=== PATIENT | female | born 1935 | race Caucasian/White ===

== ENCOUNTER 2019-07-05 10:05 | Outpatient (CLI) | payer MEDICARE, SELFPAY ==
--- NOTE | ~2019-07-05 | XR_ITS ---
EXAMINATION: XR chest 2V DATE: 07/05/2019 11:37 INDICATION: Diabetes. Preop. TECHNIQUE: Frontal and lateral views of the chest were obtained. COMPARISON: None. FINDINGS: There is mild atelectasis in left lower lung zone. No pleural effusion or pneumothorax. The heart size is normal. IMPRESSION: 1. Mild atelectasis in left lower lung zone. Reviewed, dictated and finalized at location A. ER HAND
--- NOTE | 2019-07-05 10:55 | ECG_ITS ---
Measurements Intervals [place] Rate: 90 P: 31 MN: 267 QRS: -47 QRSD: 149 T: 70 QT: 379 QTc: 466 Interpretive Statements SINUS RHYTHM WITH FIRST DEGREE AV BLOCK VENTRICULAR PREMATURE COMPLEX POSSIBLE LEFT ATRIAL ENLARGEMENT LEFT AXIS DEVIATION LEFT BUNDLE BRANCH BLOCK ABNORMAL ECG Electronically Signed On 07-05-2019 11:50:56 CREDIT ADMINISTRATION SPECIALIST by Santosh Arias D.O.
[2019-07-05 11:34] LABS: Basophils Absolute Auto 0.1 K/mm3 (0.0-0.1); Basophils Percent Auto 0.9 % (0.2-1.2); Eosinophils Absolute Auto 0.1 K/mm3 (0-0.3); Eosinophils Percent Auto 1.7 % (0-4.4); Hematocrit 39.9 % (37.0-47.0); Hemoglobin 13.5 g/dL (12.0-15.0); Immature Granulocyte Absolute 0.01 K/mm3 (0.00-0.031); Immature Granulocyte Percent A 0.2 % (0-0.5); Lymphocytes Absolute Auto 1.54 K/mm3 (0.9-3.2); Lymphocytes Percent Auto 28.8 % (18.3-44.2); Mean Corpuscular HGB Conc 33.8 g/dl (32-36); Mean Corpuscular Hemoglobin 34.6 pg (26-34); Mean Corpuscular Volume 102.3 fl (80-100); Mean Platelet Volume 9.3 fl (7.4-10.4); Monocytes Absolute Auto 0.5 K/mm3 (0.1-0.6); Monocytes Percent Auto 9.6 % (2.6-8.5); Neutrophils Absolute Auto 3.1 K/mm3 (1.3-6.7); Neutrophils Percent Auto 58.8 % (45.5-73.1); Platelet Count Result 215 k/mm3 (150-375); Red Cell Distribution Width 13.2 % (11.5-14.5); White Blood Count 5.3 K/mm3 (4.5-10.0)
[2019-07-05 11:39] LABS: Albumin Level 4.9 g/dL (3.5-5.1); Blood Urea Nitrogen 13 mg/dL (7-17); Calcium 10.4 mg/dL (8.4-10.2); Carbon Dioxide 27 mmol/L (22-30); Chloride 98 mmol/L (98-107); Estimated Glomerular Filt Rate > 60; Glucose 98 mg/dL (65-105); Potassium 3.7 mmol/L (3.4-5.0); Sodium 137 mmol/L (137-145)
[2019-07-05 11:44] LABS: Urine Cotinine NEGATIVE
[2019-07-05 18:17] LABS: Hemoglobin A1C 5.7 % (<5.7)
== END 2019-07-05 10:06 | disposition home or self-care (01) ==
PROVIDERS: PCP Family Medicine; Visit Provider Orthopaedic Surgery
DX: M16.11 Unilateral primary osteoarthritis, right hip (principal); E11.9 Type 2 diabetes mellitus without complications; I10 Essential (primary) hypertension; R91.8 Other nonspecific abnormal finding of lung field; I44.7 Left bundle-branch block, unspecified; I44.0 Atrioventricular block, first degree
CPT/HCPCS: 36415; 71046; 80048; 80307; 82040; 83036; 85025; 87070; 93005

== ENCOUNTER 2019-07-18 10:23 | Outpatient (CLI) | payer MEDICARE, SELFPAY ==
[2019-07-18 12:04] LABS: Vitamin D 25 Hydroxy < 12.8 ng/mL
== END 2019-07-18 10:24 | disposition home or self-care (01) ==
PROVIDERS: PCP Family Medicine; Visit Provider Orthopaedic Surgery
DX: E55.9 Vitamin D deficiency, unspecified (principal)
CPT/HCPCS: 36415; 82306

== ENCOUNTER 2019-07-19 07:41 | Outpatient (CLI) | payer MEDICARE, SELFPAY ==
--- NOTE | ~2019-07-19 | NM_ITS ---
EXAMINATION: NM micaela stress w perfusion DATE: 07/19/2019 15:09 INDICATION: Dyspnea TECHNIQUE: Rest images were obtained following intravenous administration of 9.8 mCi Tc99m tetrofosmi n (Myoview). The patient was infused intravenously with Lexiscan (Regadenoson). Then, 23.8 mCi Tc99m tetrofosmin (Myoview) was administered intravenously, and stress images were obtained. Data was recon structed into short axis and horizontal and vertical long axis SPECT images. Gated SPECT images were also obtained. COMPARISON: None. FINDINGS: Large mild to moderate severity perfusion defect involving the apical, apical septal, mid a nteroseptal, mid and basilar inferoseptal, apical to basilar inferior wall and mid posterolateral wal l which is largely nonreversible consistent with infarct. Mild reversible ischemia at the basilar inf eroseptal and inferior segments. There is also mild reversible ischemia at the anterior apical and la teral apical segments. There is normal left ventricular chamber size with mild decreased wall thicke jamil and wall motion along the inferior and inferoseptal [place]. Left ventricular ejection fraction r emains normal measuring 57%. IMPRESSION: 1. Small regions of mild reversible ischemia at the margins of a large mild to moderate severity infa rct involving the majority of the right coronary artery is distribution as well as portion of the lef t anterior descending and to lesser greater circumflex coronary artery vascular distributions. 2. Left ventricular ejection fraction measuring 57%. Reviewed, dictated and finalized at location A. LT WORKER IMPRESSION: 1. Small regions of mild reversible ischemia at the margins of a large mild to moderate severity infarct involving the majority of the right coronary artery i s distribution as well as portion of the left anterior descending and to lesser greater circumflex coronary artery vascular distributions. 2. Left ventricular ejection fraction measuring 57%.
--- NOTE | 2019-07-19 07:50 | EST_ITS ---
Patient Info Name: Misty Telles Age: 83 years : 1935 Gender: Female Ht: 64 in Wt: 125 lbs BSA: 1.60 m2 Exam Date: 07/19/2019 11:52 AM Exam Location: [facility] Stress Patient Status: Outpatient Admit Date: 07/19/2019 Staff Ordering Physician: Santosh Arias DO Attending Provider: Santosh Arias DO Exercise Technologist: Archie Guevara RDCS, RT Exercise Physician: Santosh Arias DO Exam Type: CA stress micaela w NM Study Info A regadenoson stress test was performed. Summary 1. 1. Inconclusive lexiscan stress test for ischemic ST changes by ECG criteria due to baseline LBBB. 2. 2. Baseline hypertension. 3. 3. Nuclear scan to follow and will be reported separately. Please correlate with it. 4. 4. Patient informed of the above results. Protocol: Lexiscan Stress ECG Details Stage: REST Duration (min): 2 min : 26 sec HR (bpm): 82 SBP (mmHg): 168 DBP (mmHg): 96 Stage: STAGE 1 Duration (min): 0 min : 59 sec HR (bpm): 91 SBP (mmHg): 168 DBP (mmHg): 96 Stage: RECOVERY Duration (min): 1 min : 0 sec HR (bpm): 98 SBP (mmHg): 168 DBP (mmHg): 96 Stage: RECOVERY Duration (min): 2 min : 0 sec HR (bpm): 99 SBP (mmHg): 159 DBP (mmHg): 80 Stage: RECOVERY Duration (min): 3 min : 0 sec HR (bpm): 97 SBP (mmHg): 161 DBP (mmHg): 85 Stage: RECOVERY Duration (min): 4 min : 0 sec HR (bpm): 96 SBP (mmHg): 161 DBP (mmHg): 85 Stage: RECOVERY Duration (min): 5 min : 0 sec HR (bpm): 94 SBP (mmHg): 153 DBP (mmHg): 83 Stage: RECOVERY Duration (min): 5 min : 3 sec HR (bpm): 94 SBP (mmHg): 153 DBP (mmHg): 83 Rest HR: 82 bpm Peak HR: 100 bpm Rest Sys BP: 168 mmHg Peak Sys BP: 161 mmHg Max Pred HR: 138 bpm % Max Pred HR: 72 % Target HR: 117 bpm Max RPP: 16,100 bpm*mmHg Termination Reason: Completed protocol Cardiac Symptoms: Shortness of breath Total Time: 1 min : 0 sec Rest Salazar BP: 96 mmHg Peak Salazar BP: 85 mmHg Total Dose: 0.4 mg Resting ECG Sinus rhythm, first degree AV block, LBBB. Stress ECG No ST changes. Arrhythmias None. Report Signatures
--- NOTE | 2019-07-19 08:26 | ECHO_ITS ---
Patient Info Name: Misty Tellse Age: 83 years : 1935 Gender: Female Ht: 64 in Wt: 125 lbs BSA: 1.60 m2 HR: 77 bpm BP: 162 / 95 mmHg Technical Quality: Good Exam Date: 07/19/2019 8:48 AM Exam Location: [facility] Pulmonary Patient Status: Outpatient Admit Date: 07/19/2019 Staff Ordering Physician: Santosh Arias DO Glue Line Operator: Philly Hughes RDCS Attending Provider: Santosh Arias DO Referring Physician: Hugo PIZANO; Exam Type: CA echo doppler color flow Study Info Indications - sanchez htn pre op Complete two-dimensional, color flow and Doppler transthoracic echocardiogram is performed. Summary 1. Left ventricular chamber dimension is normal. 2. Left ventricular systolic function is mildly reduced, estimated at 45-50%. 3. Left ventricular septal wall motion is abnormal with septal motion related to bundle branch block. 4. The left ventricular diastolic function is abnormal. 5. E/e' 32 is significantly elevated. 6. Left atrial chamber dimension is mildly enlarged. 7. The mitral valve has mildly calcified annulus. 8. There is mild tricuspid valve regurgitation. 9. No pulmonary hypertension, estimated pulmonary arterial systolic pressure is 31 mmHg. Left Ventricle E/e' 32 is significantly elevated. Left ventricular chamber dimension is normal. Left ventricular systolic function is mildly reduced, estimated at 45-50%. Left ventricular septal wall motion is abnormal with septal motion related to bundle branch block. The left ventricular diastolic function is abnormal. Right Ventricle Right ventricular chamber dimension is normal. Right ventricular systolic function is normal. Left Atria Left atrial chamber dimension is mildly enlarged. Right Atria Right atrial chamber dimension is normal. Aortic Valve The aortic valve is trileaflet. There is no aortic valve stenosis. There is no aortic valve regurgitation. Pulmonic Valve There is no pulmonic regurgitation. Mitral Valve The mitral valve has mildly calcified annulus. There is no mitral valve stenosis. There is no mitral valve regurgitation. Tricuspid Valve There is mild tricuspid valve regurgitation. No pulmonary hypertension, estimated pulmonary arterial systolic pressure is 31 mmHg. Pericardium/Pleural There is no pericardial effusion. Inferior Vena Cava Normal inferior vena cava with >50% collapse upon inspiration consistent with normal right atrial pressure, 5 mmHg. Aorta The aortic root size at the sinus of Valsalva is normal. Left Ventricular Outflow Tract Name Value Normal LVOT 2D LVOT Diameter 2.0 cm LVOT Doppler LVOT Peak Gradient 5 mmHg LVOT Mean Gradient 4 mmHg LVOT VTI 24 cm LVOT VTI/AV VTI Ratio 0.8 LVOT Stroke Volume 75 ml LVOT CO 17.9 l/min LVOT CI 11.2 l/min/m2 Pulmonic Valve Name
== END 2019-07-19 07:42 | disposition home or self-care (01) ==
PROVIDERS: PCP Family Medicine; Visit Provider Internal Medicine Cardiovascular Disease
DX: R06.09 Other forms of dyspnea (principal); I25.9 Chronic ischemic heart disease, unspecified; I51.7 Cardiomegaly; I07.1 Rheumatic tricuspid insufficiency
CPT/HCPCS: 78452; 93017; 93306; A9502; J2785

== ENCOUNTER 2019-08-07 05:05 | Day surgery (SDC) | payer MEDICARE, SELFPAY ==
[2019-08-04 15:32] VITALS: BMI 21.5
[2019-08-07] VITALS (9 sets, daily range): BP systolic 127–169; BP diastolic 76–98; PULSE 70–88; RESP 12–22; TEMP 36.4; O2SAT 98–100
[2019-08-07 10:14] LABS: Basophils Percent Auto 0.7 % (0.2-1.2); Eosinophils Absolute Auto 0.1 K/mm3 (0-0.3); Eosinophils Percent Auto 1.4 % (0-4.4); Hematocrit 39.5 % (37.0-47.0); Hemoglobin 13.4 g/dL (12.0-15.0); Immature Granulocyte Absolute 0.02 K/mm3 (0.00-0.031); Immature Granulocyte Percent A 0.3 % (0-0.5); Lymphocytes Absolute Auto 1.77 K/mm3 (0.9-3.2); Lymphocytes Percent Auto 30.3 % (18.3-44.2); Mean Corpuscular HGB Conc 33.9 g/dl (32-36); Mean Corpuscular Hemoglobin 34.4 pg (26-34); Mean Corpuscular Volume 101.5 fl (80-100); Monocytes Absolute Auto 0.7 K/mm3 (0.1-0.6); Monocytes Percent Auto 12.3 % (2.6-8.5); Neutrophils Absolute Auto 3.2 K/mm3 (1.3-6.7); Platelet Count Result 195 k/mm3 (150-375); Red Blood Count 3.89 M/mm3 (4.2-5.4); Red Cell Distribution Width 13.1 % (11.5-14.5); White Blood Count 5.8 K/mm3 (4.5-10.0)
[2019-08-07 10:23] LABS: INR 0.9; Prothrombin Time 11.9 Seconds (11.1-14.7)
[2019-08-07 10:25] LABS: Blood Urea Nitrogen 14 mg/dL (7-17); Calcium 10.4 mg/dL (8.4-10.2); Carbon Dioxide 25 mmol/L (22-30); Chloride 101 mmol/L (98-107); Estimated CRCL calculation 46 ml/min; Estimated Glomerular Filt Rate > 60; Glucose 129 mg/dL (65-105); Potassium 4.1 mmol/L (3.4-5.0); Sodium 138 mmol/L (137-145)
--- NOTE | 2019-08-07 12:28 | WPDMODSED ---
Moderate Sedation Note-Pt Data Patient Data Diagnosis: left bundle-branch block hypertension abnormal nuclear stress test preop evaluation orthopedic surgery Present Complaint: exertional dyspnea Procedure to be performed/Plan: left heart catheterization Allergies Allergy/AdvReac Type Severity Reaction Status Date / Time No Known Allergies Allergy Verified 07/25/19 15:13 Home Medications Medication Instructions Recorded Confirmed Type hydrocodone-acetaminophen 1 tablet PO HS PRN 07/05/19 08/07/19 History lisinopril 10 mg PO DAILY 07/05/19 08/07/19 History metformin 1,000 mg PO BID 07/05/19 08/07/19 History aspirin 81 mg tablet,delayed 81 mg PO DAILY #30 tablet 07/28/19 08/07/19 Rx release pravastatin 10 mg tablet 10 mg PO DAILY #30 tablet 07/28/19 08/07/19 Rx Current Medications: Active Medications Sodium Chloride (Normal Saline Iv) 500 mls @ 100 mls/hr IV CONT .Q5H [facility] Sedation/Anesthesia: No previous sedation/anesthesia problems (including family history). [facility] Past Medical History Medical History (Updated 07/18/19 @ 09:32 by Santosh Arias DO) Anemia Arthritis Diabetes History of breast cancer Right hip pain Social History Social History Gender identity (if verbalized by the patient): Male Mod Sed Physical Exam Physical Exam Pre Procedural Exam: Normal: Neck, Throat, Airway, Lungs, Heart Size, Heart Rate, Heart Rhythm, Neuro Exam and Extremities and Variation: Appearance ( thin elderly white female appears to be comfortable in no distress) Hours since solid foods: 14 Hours since liquid intake: 14 Internal Medicine - PN: Obj Da Vital Signs Vital Signs: Vital Signs - 24 hr 08/07/19 10:17 Temperature 36.4 C L Pulse Rate 88 Respiratory Rate 15 Blood Pressure 169/98 H Pulse Oximetry 100 Meds/Results Medications: Active Medications Generic Name Dose Route Start Last Admin Trade Name Freq PRN Reason Stop Dose Admin Sodium Chloride 500 mls @ 100 mls/hr 08/07/19 06:05 Normal Saline Iv IV CONT .Q5H [facility] Labs CBC & Chem 7: 08/07/19 10:04 08/07/19 10:04 Labs: Laboratory Results - last 24 hr 08/07/19 08/07/19 08/07/19 10:04 10:04 10:04 WBC 5.8 RBC 3.89 L Hgb 13.4 Hct 39.5 MCV 101.5 H MCH 34.4 H MCHC 33.9 RDW 13.1 Plt Count 195 MPV 9.0 Immature Gran % (Auto) 0.3 Neut % (Auto) 55.0 Lymph % (Auto) 30.3 [place] % (Auto) 12.3 H Eos % (Auto) 1.4 Baso % (Auto) 0.7 Lymph # (Auto) 1.77 [place] # (Auto) 0.7 H Eos # (Auto) 0.1 Baso # (Auto) 0.0 Abs Immat Gran (auto) 0.02 Absolute Neuts (auto) 3.2 Absolute Nucleated RBC 0.0 Nucleated RBC % 0.0 PT 11.9 INR 0.9 Sodium 138 Potassium 4.1 Chloride 101 Carbon Dioxide 25 BUN 14 Creatinine 0.70 Estim Creat Clear Calc 46 Estimated GFR > 60 Glucose 129 H Calcium 10.4 H ASA Classification/Sedation ASA Classification/Sedation ASA Class: II Emergent: No Risks: Risks, benefits and alternatives explained and patient/family accepted plan for sedation. Patient re-evaluated immediately prior to sedation.
--- NOTE | 2019-08-07 13:00 | P.PCNCC_ITS ---
Cardiac Cath Procedure Note Date of procedure:: 08/07/19 Performing physician:: Star Medley MD Indication:: preop evaluation for noncardiac orthopedic surgery left bundle branch block abnormal nuclear stress test suggestive of previous inferior infarction Brief clinical history:: this is an 83-year-old woman being evaluated prior to hip surgery. She was found to have a left bundle branch block by ECG and nuclear stress test findings were reported as showing a fixed inferior defect Procedure Procedure performed:: left heart catheterization with coronary angiography and left ventriculography Angio-Seal to right femoral artery Sedation/Medication given:: fentanyl 50 mg Versed 2 mg case start time 12:43 p.m. case end time 12:57 p.m. sedation provided by Melvin Stevenson RN, trained observer Access site:: right femoral artery Estimated blood loss:: 15-20 cc Procedure note:: patient was brought to the cardiac catheterization lab in the postabsorptive state the right femoral triangle was prepared in the usual fashion anesthesia was given with 1% lidocaine infiltrated locally. Using modified Seldinger technique the right femoral artery was punctured and a 5 Colombian vascular sheath was placed. Following this an angled pigtail catheter was used to measure left-sided hemodynamics and to injected LV g in the MCELROY proj ection. Following this the pigtail catheter was removed. A standard 5 [place]ian FL4 catheter was used to engage inject the left coronary artery in multiple projections. After this a JR4 catheter was used to inject the right coronary artery. The right coronary injections non selectively but were of good quality. After this the cineangiograms were reviewed the case was terminated and Angio- Seal was performed at the right femoral artery puncture site after an angiogram was done through the sheath. The she had no complications and left the cardiac cath lab radiology technologist with no evidence of a groin hematoma. Findings:: Hemodynamics: central aortic pressure is 158/66 left ventricle 158/0 end-diastolic pressure 8 there is no gradient upon pullback across the aor tic valve. The left ventricle is mildly dilated there is global systolic hypocontractility in all segments a map colorer the overall ejection fraction to be 30% by visual estimation. The left main coronary artery is a medium caliber vessel there is mild atherosclerotic plaquing which is calcified in the proximal half of the left main this represents no more than 40-50% stenosis in any projection. The 5 Colombian diagnostic catheter was engaged past this area of stenosis with no loss of pressure. The LAD is a moderate caliber artery extending down to the apex the LAD has modest luminal irregularities but no significant atherosclerosis circumflex is a moderate caliber artery giving rise to the marginal branches the circumflex is smooth and angiographically normal in appearance the right coronary artery is moderate to large in caliber dominant to the posterior circulation it is angiographically free of disease Conclusion:: 1. right coronary dominant circulation with no significant coronary lesions seen. Patient does have calcified proximal left main disease but it is not flow limiting 2. global left ventricular systolic dysfunction estimated ejection fraction is about 30% 3. successful Angio-Seal deployment following the case for hemostasis Star Medley MD [facility]
--- NOTE | 2019-08-07 14:16 | SUR.PHASEII ---
1400 HEAD OF BED ELEVATED TO 30 DEGREES SO PATIENT CAN EAT A TRAY. NO SIGNS OF BLEEDING OR HEMATOMA, WILL CONTINUE TO MONITOR.
--- NOTE | 2019-08-07 15:13 | SUR.PHASEII ---
1500 PATIENT AMBULATED TO BATHROOM AND THEN CHAIR WITH NO SIGNS OF BLEEDING OR HEMATOMA, WILL CONTINUE TO MONITOR.
--- NOTE | 2019-08-07 16:58 | SUR.PHASEII ---
1620 DISCHARGE INSTRUCTIONS REVIEWED WITH PATIENT AND FAMILY, ALL QUESTIONS ANSWERED, IV DISCONTINUED, PATIENT DRESSING SELF.
== END 2019-08-07 16:20 | disposition home or self-care (01) ==
PROVIDERS: PCP Family Medicine; Visit Provider Specialist
PROC: 4A023N7 Measurement of Cardiac Sampling and Pressure, Left Heart, Percutaneous Approach (ICD-10-PCS; CPT 93452; principal; 2019-08-07 11:30)
DX: Z01.810 Encounter for preprocedural cardiovascular examination (principal); I44.7 Left bundle-branch block, unspecified; R94.39 Abnormal result of other cardiovascular function study; I25.10 Atherosclerotic heart disease of native coronary artery without angina pectoris; I11.0 Hypertensive heart disease with heart failure; I50.20 Unspecified systolic (congestive) heart failure; M16.11 Unilateral primary osteoarthritis, right hip; R06.09 Other forms of dyspnea; E11.9 Type 2 diabetes mellitus without complications; D64.9 Anemia, unspecified; Z85.3 Personal history of malignant neoplasm of breast; Z79.82 Long term (current) use of aspirin; Z79.84 Long term (current) use of oral hypoglycemic drugs
CPT/HCPCS: 36415; 80048; 85025; 85610; 93458; C1760; C1887; C1894; G0269; J1644; J2250; J3010; J7040

== ENCOUNTER 2020-07-08 09:45 | Outpatient (CLI) | payer MEDICARE, SELFPAY ==
[2020-07-08 10:18] LABS: Cholesterol 201 mg/dL (0-200); HDL Direct 91 mg/dL; Triglycerides 172 mg/dL (<150)
[2020-07-08 10:29] LABS: LDL Cholesterol Direct 77 mg/dL
== END 2020-07-08 09:46 | disposition home or self-care (01) ==
PROVIDERS: PCP Family Medicine; Visit Provider Internal Medicine Cardiovascular Disease
DX: E78.5 Hyperlipidemia, unspecified (principal)
CPT/HCPCS: 36415; 80061

== ENCOUNTER 2021-11-11 07:21 | Outpatient (CLI) | payer MEDICARE, SELFPAY ==
--- NOTE | 2021-12-05 15:19 | WPDSLEEPSTUD ---
Sleep Study Date of Study: 11/11/21 Ordering Provider: Santosh Arias DO Interpreting Physician: Evelia Savage DO Sleep Study Type: Split Polysomnogram Height: 1.68 m Weight: 54.885 kg Body Mass Index: 19.5 Neck Circumference (inches): 13.5 [place]: 2 Reason for Sleep Study Snoring, daytime somnolence Sleep History The patient is an 86-year-old female with hypertension, diabetes, coronary artery disease, dyslipidemia, left bundle branch block the hand right hip pain that had a sleep study ordered by her it service manager. The patient denies awakening from sleep short of breath. She frequently awakens at night with heartburn, belching or cough. She is unsure if she snores. She constantly has trouble sleeping when she has a. She denies waking up gasping for air throughout the night. She denies having breathing problems at night observed by herself or others. She denies sweating excessively at night. She denies having her palpitations or irregular heartbeats during the night. She denies falling asleep during the day and while driving. She denies sleep paralysis, cataplexy and hypnagogic/ hypnopompic hallucinations. She denies having nightmares. She denies remembering her dreams. She occasionally has thoughts racing through her. She rarely feels sad or depressed. She denies having anxiety. She occasionally has muscular tension. She denies noticing her upper body jerk. She denies waking during the night. She occasionally has crawling and aching feelings in her legs as well as leg pain during the night. She denies burning or pain during sleep awakening with morning jaw pain. She is frequently bothered by pain during the day frequently awakened by pain during the night. She constantly wakes up feeling stiff in the morning. She constantly wakes up with sore and achy muscles. She constantly wakes up with pain in the neck, spine and other joints. She goes to bed at 7:00 p.m. on both weekdays and weekends. It takes her 30 minutes to fall asleep. She wakes up 3 times throughout the night to use the restroom. It takes her 2 hours to fall back asleep. She wakes up at 6:00 a.m. on both weekdays and weekends. She typically gets 4 hours of sleep per night. She will stay in bed for 1 hour after waking up in the morning. She currently lives alone. She does not consume any caffeinated beverages within 2 hours of bedtime. She does not engage in physical exercise before bedtime. She will watch television before fall asleep. She denies taking naps in the afternoon or the evening. She drinks 2 cups of caffeinated beverage per day. She denies tobacco, alcohol and recreational drug use. [facility] Past Medical History Medical History Anemia Arthritis Diabetes History of breast cancer Right hip pain Social History Social History Smoking status: Never smoker Gender identity (if verbalized by the patient): Male Medications Home Medications Medication Instructions Recorded Confirmed Type metformin 500 mg tablet 1,000 mg PO BID 07/05/19 10/27/21 History aspirin 81 mg tablet,delayed 81 mg PO DAILY #30 tabs 07/28/19 10/27/21 Rx release (Adult Low Dose Aspirin) lisinopril 5 mg tablet 5 mg PO DAILY #30 tabs 09/10/21 10/27/21 Rx lovastatin 10 mg tablet See Rx Instructions .Route 11/15/21 Rx .COMPLEX #90 tabs Sleep Procedure This test was performed using the [facility] multiple channel system including EOG, EEG, submental EMG, EKG, nasal and oral airflow using thermistors and nasal pressure sensors, chest and abdominal belts for body position data, and pulse oximetry. Video monitoring was also performed. The study was scored using CMS guidelines. Sleep Architecture Diagnostic: The patient had a total recording time of 165.5 minutes and total sleep time of 123.5 minutes. The sleep efficiency was 7
[2021-12-05 15:41] VITALS: BMI 19.5
== END 2021-11-12 07:02 | disposition home or self-care (01) ==
LOC: ANHCSM 07:28
PROVIDERS: PCP Family Medicine; Visit Provider Internal Medicine Cardiovascular Disease
DX: G47.10 Hypersomnia, unspecified (principal); G47.30 Sleep apnea, unspecified; G47.33 Obstructive sleep apnea (adult) (pediatric)
CPT/HCPCS: 95811

== ENCOUNTER 2021-12-10 01:40 | Day surgery (SDC) | payer MEDICARE, SELFPAY ==
[2021-12-10] VITALS (15 sets, daily range): BP systolic 141–188; BP diastolic 74–99; PULSE 59–82; RESP 15–22; TEMP 36.5–36.7; O2SAT 94–100; BMI 20.7
[2021-12-10 07:50] LABS: Basophils Absolute Auto 0.1 K/mm3 (0.0-0.1); Basophils Percent Auto 1.1 % (0.2-1.2); Eosinophils Absolute Auto 0.2 K/mm3 (0-0.3); Eosinophils Percent Auto 4.5 % (0-4.4); Hematocrit 36.3 % (37.0-47.0); Hemoglobin 11.9 g/dL (12.0-15.0); Immature Granulocyte Absolute 0.02 K/mm3 (0.00-0.031); Immature Granulocyte Percent A 0.4 % (0-0.5); Lymphocytes Absolute Auto 1.53 K/mm3 (0.9-3.2); Lymphocytes Percent Auto 32.6 % (18.3-44.2); Mean Corpuscular HGB Conc 32.8 g/dl (32-36); Mean Corpuscular Hemoglobin 34.3 pg (26-34); Mean Corpuscular Volume 104.6 fl (80-100); Mean Platelet Volume 9.1 fl (7.4-10.4); Monocytes Absolute Auto 0.6 K/mm3 (0.1-0.6); Neutrophils Absolute Auto 2.3 K/mm3 (1.3-6.7); Neutrophils Percent Auto 48.4 % (45.5-73.1); Platelet Count Result 169 k/mm3 (150-375); Red Blood Count 3.47 M/mm3 (4.2-5.4); Red Cell Distribution Width 14.7 % (11.5-14.5); White Blood Count 4.7 K/mm3 (4.5-10.0)
[2021-12-10 08:02] LABS: Anion Gap 9 mmol/L (8-16); Blood Urea Nitrogen 14 mg/dL (7-17); Calcium 10.4 mg/dL (8.4-10.2); Carbon Dioxide 24 mmol/L (22-30); Chloride 107 mmol/L (98-107); Estimated Glomerular Filt Rate > 60; Glucose 129 mg/dL (65-110); Potassium 4.2 mmol/L (3.4-5.0); Sodium 140 mmol/L (137-145)
--- NOTE | 2021-12-10 08:26 | SUR.PREOP ---
0820 Dr. Medley at bedside examining patient and talking with patient and son regarding left heart cath procedure.
--- NOTE | 2021-12-10 08:28 | PM.IMHP ---
H&P: HPI History of Present Illness Date/Time: 12/10/21 08:28 Chief Complaint: Exertional dyspnea /intermittent chest pain Narrative: this is an 86-year-old woman with a history of coronary artery disease according to the records she has mild non flow-limiting left main stenosis. She has been reporting symptoms of increasing exertional shortness of breath presumably the concern is the stability of her left main disease and follow-up angiography has been recommended for today by her noninvasive child welfare consultant. She does have a chronic left bundle branch block hypertension and diabetes as principal comorbidities. Review of Systems Constitutional: Constitutional: Reports lethargy Eyes: Eyes: Reports no additional eye complaints ENT: Reports system reviewed and no additional complaints, except as documented Cardiovascular: Cardiovascular: Reports as per HPI Respiratory: Respiratory: Reports dyspnea on exertion Gastrointestinal: Gastrointestinal: Reports no additional gastrointestinal complaints Musculoskeletal: Musculoskeletal: Reports back pain Integumentary/Breasts: Skin/Breast: Reports system reviewed and no additional complaints, except as docu Neurologic: Reports system reviewed and no additional complaints, except as documented [facility] Past Medical History Medical History Anemia Arthritis Diabetes History of breast cancer Right hip pain Social History Social History Smoking status: Never smoker Second hand tobacco smoke exposure: Yes Alcohol intake: current Drinks per week: 1 Alcohol use details: occassional use Substance use: never Substance use type: does not use Living arrangements: alone Gender identity (if verbalized by the patient): Male Meds Home Medications and Allergies Home Medications Medication Instructions Recorded Confirmed Type metformin 500 mg tablet 1,000 mg PO DAILY 07/05/19 12/10/21 History aspirin 81 mg tablet,delayed 81 mg PO DAILY #30 tabs 07/28/19 12/10/21 Rx release (Adult Low Dose Aspirin) lisinopril 5 mg tablet 5 mg PO DAILY #30 tabs 09/10/21 12/10/21 Rx lovastatin 10 mg tablet See Rx Instructions .Route 11/15/21 12/10/21 Rx .COMPLEX #90 tabs Allergies Allergy/AdvReac Type Severity Reaction Status Date / Time No Known Allergies Allergy Verified 12/10/21 07:46 Vital Signs Vital Signs - 24 hr 12/10/21 07:52 Temperature 36.7 C Pulse Rate 82 Respiratory Rate 22 H Blood Pressure 188/99 H Pulse Oximetry 97 Oxygen Delivery Room Air Exam Const: General: comfortable and no acute distress Other: Pleasant elderly lady no distress HENMT: Mouth: Yes moist mucous membranes Eyes: Sclera: sclerae normal Pupils: Equal, round and reactive pupils present Neck: Neck: supple and no JVD Resp: Effort & Inspection: normal respiratory effort Auscultation: clear to auscultation bilaterally Cardio: Rate: regular rate Rhythm: regular rhythm GI: GI Palp: Yes Soft to palpation Auscultation: normal bowel sounds Skin: General skin exam: normal color Neuro: Other: normal cognition Extrem: Other: no edema, good distal pulses H&P: Results Labs Labs: Short CBC 12/10/21 Range/Units 07:44 WBC 4.7 (4.5-10.0) K/mm3 Hgb 11.9 L (12.0-15.0) g/dL Hct 36.3 L (37.0-47.0) % Plt Count 169 (150-375) k/mm3 [facility] 12/10/21 07:44 Sodium 140 Potassium 4.2 Chloride 107 Carbon Dioxide 24 BUN 14 Creatinine 0.80 Glucose 129 H Calcium 10.4 H Assessment and Plan Assessment and plan (1) Chest pain: Code(s): R07.9 - Chest pain, unspecified Status: Acute (2) ALCAZAR (dyspnea on exertion): Code(s): R06.09 - Other forms of dyspnea Status: Acute (3) LBBB (left bundle branch block): Code(s): I44.7 - Left bundle-branch block, unspecified Status: Acute
--- NOTE | 2021-12-10 09:11 | WPDCARDPROC ---
Cardiac Cath Procedure Note Date of procedure:: 12/10/21 Performing physician:: Star Medley MD Indication:: exertional dyspnea/intermittent chest pain Brief clinical history:: this is an 86-year-old lady who is known to have a history of left main coronary stenosis which was mild about 2 years ago. She is now experiencing symptoms of worsening exertional dyspnea as well as some intermittent chest pain and follow-up angiography was recommended in this setting. Procedure Procedure performed:: Left ventriculogram coronary angiogram Sedation/Medication given:: fentanyl 25 mg case start time 8:48 a.m. case end time 9:07 a.m. Access site:: right femoral artery Estimated blood loss:: 25 cc Procedure note:: patient was brought to the cardiac catheterization lab in the postabsorptive state where the right femoral triangle was prepared and draped in a normal fashion. Anesthesia was provided with 1% lidocaine infiltrated locally. Using the modified Seldinger technique the right femoral artery was punctured and a 5 Belgian vascular sheath was placed. After this I used a 5 Belgian angled pigtail catheter to measure left-sided hemodynamics and to inject LV g in the our AO projection. After this the right coronary artery was injected 5 Belgian JR4 catheter. The left coronary artery was injected using a standard 5 Belgian JL4 catheter. The cineangiograms were then reviewed and the case was terminated. The patient was taken area where the catheter will be removed with direct manual compression. There were no apparent procedural complications. He left the laborer landscape with no evidence of a groin hematoma. Findings:: Hemodynamics: Central aortic pressure is 184 84 left ventricle 184/88 end-diastolic pressure 28. No gradient on pullback across the aortic valve. Left ventricle: The LV is mildly enlarged there is mild global hypocontractility identified with an ejection fraction about 40-45%. The left main coronary artery is moderate to large in caliber there is a calcified proximal/ostial stenosis in the LAD which in the SHONNA cranial projection is at least 80% stenosis. The mid to distal portion of the left main are free of stenosis. The left anterior descending is a moderate caliber artery extending down to the apex the LAD in its branches are angiographically free of disease. The circumflex is a moderate caliber artery giving rise to the marginal branches the circumflex system is smooth and angiographically free of disease. The right coronary artery is large in caliber dominant to the posterior circulation and is also smooth and free of disease. Conclusion:: 1. Single-vessel coronary artery disease involving 80% calcified ostial stenosis of the left main coronary artery with right coronary dominant circulation. 2. Mild global left ventricular systolic dysfunction 3. severe systemic hypertension Star Medley MD [facility]
[2021-12-10] MEDS: ACETAMINOPHEN 500 MG TABLET 1000 MG PO (10:37)
== END 2021-12-10 15:15 | disposition home or self-care (01) ==
PROVIDERS: PCP Family Medicine; Visit Provider Specialist
PROC: 4A023N7 Measurement of Cardiac Sampling and Pressure, Left Heart, Percutaneous Approach (ICD-10-PCS; CPT 93452; principal; 2021-12-10 08:30)
DX: I25.10 Atherosclerotic heart disease of native coronary artery without angina pectoris (principal); R07.9 Chest pain, unspecified; R06.09 Other forms of dyspnea; I44.7 Left bundle-branch block, unspecified; I11.9 Hypertensive heart disease without heart failure; E11.9 Type 2 diabetes mellitus without complications; Z79.84 Long term (current) use of oral hypoglycemic drugs; Z79.82 Long term (current) use of aspirin
CPT/HCPCS: 36415; 80048; 85025; 93458; A9270; C1887; C1894; J1644; J2250; J2310; J3010; J7040

== ENCOUNTER 2022-03-13 14:58 | Inpatient (IN) | payer MEDICARE, SELFPAY ==
[2022-03-12 14:12] VITALS: BMI 22.3
--- NOTE | 2022-03-12 14:36 | PC.NURSE ---
patient informed me during her pre op questions that she had a syncopal episode at home on wednesday night around 930. she said she was ambulating to use the restroom and woke up on the floor. her states she bruised her head and leg but does not have any gashes or hematomas on her head. she said she lives alone and did not report this to the doctor's office. I educated her on if she has another syncopal episode between now and her appointment tomorrow to call 911 since it could be her heart having pauses. she verbalizes understanding. I called chapo bonner np for hcg and informed her of the episode as well.
[2022-03-13] VITALS (18 sets, daily range): BP systolic 102–178; BP diastolic 54–112; PULSE 64–87; RESP 12–22; TEMP 36.3–36.9; O2SAT 95–100; BMI 22.4
--- NOTE | ~2022-03-13 | XR_ITS ---
XR chest 1V portable 03/13/2022 13:11 Indication: Post pacemaker implant Procedure: AP portable chest Comparison: 07/05/2019 Findings: There is a radiopaque device overlying the cardiac contour. Heart size normal. There is pat lou bilateral infiltrates which may represent atelectasis and/or pneumonia. No significant effusion o r pneumothorax. No acute osseous abnormality. Impression: 1: Patchy bilateral airspace disease which may represent atelectasis and/or pneumonia. Reviewed, dictated and finalized at location A. Impression: 1: Patchy bilateral airspace disease which may represent atelectasis and/or pne umonia.
--- NOTE | 2022-03-13 09:00 | ECG_ITS ---
Measurements Intervals [place] Rate: 76 P: -13 MT: 315 QRS: -62 QRSD: 158 T: 91 QT: 400 QTc: 452 Interpretive Statements SINUS RHYTHM WITH FIRST DEGREE AV BLOCK POSSIBLE LEFT ATRIAL ENLARGEMENT [-0.1mV P WAVE IN V1/V2] LEFT BUNDLE BRANCH BLOCK COMPARED TO ECG 07/05/2019 11:28:06 MT INTERVAL IS LONGER Electronically Signed On 03-13-2022 14:05:13 CDT by Star Medley M.D.
[2022-03-13 09:36] LABS: Basophils Absolute Auto 0.1 K/mm3 (0.0-0.1); Basophils Percent Auto 1.2 % (0.2-1.2); Eosinophils Absolute Auto 0.1 K/mm3 (0-0.3); Eosinophils Percent Auto 2.6 % (0-4.4); Hemoglobin 12.7 g/dL (12.0-15.0); Immature Granulocyte Absolute 0.01 K/mm3 (0.00-0.031); Immature Granulocyte Percent A 0.2 % (0-0.5); Lymphocytes Absolute Auto 1.51 K/mm3 (0.9-3.2); Lymphocytes Percent Auto 35.6 % (18.3-44.2); Mean Corpuscular HGB Conc 33.4 g/dl (32-36); Mean Corpuscular Hemoglobin 33.2 pg (26-34); Mean Corpuscular Volume 99.2 fl (80-100); Mean Platelet Volume 9.3 fl (7.4-10.4); Monocytes Absolute Auto 0.5 K/mm3 (0.1-0.6); Monocytes Percent Auto 11.3 % (2.6-8.5); Neutrophils Absolute Auto 2.1 K/mm3 (1.3-6.7); Neutrophils Percent Auto 49.1 % (45.5-73.1); Platelet Count Result 167 k/mm3 (150-375); Red Blood Count 3.83 M/mm3 (4.2-5.4); White Blood Count 4.2 K/mm3 (4.5-10.0)
[2022-03-13 09:49] LABS: Anion Gap 15 mmol/L (8-16); Blood Urea Nitrogen 18 mg/dL (7-17); Calcium 10.3 mg/dL (8.4-10.2); Carbon Dioxide 25 mmol/L (22-30); Chloride 102 mmol/L (98-107); Estimated CRCL calculation 29 ml/min; Estimated Glomerular Filt Rate 47; Glucose 128 mg/dL (65-110); Potassium 4.2 mmol/L (3.4-5.0); Sodium 142 mmol/L (137-145)
--- NOTE | 2022-03-13 10:15 | WPDMODSED ---
Moderate Sedation Note-Pt Data Patient Data Diagnosis: intermittent complete heart block left bundle branch block Present Complaint: lightheadedness, recent onset of syncope Procedure to be performed/Plan: implantation of permanent pacemaker Allergies Allergy/AdvReac Type Severity Reaction Status Date / Time No Known Allergies Allergy Verified 03/13/22 09:42 Home Medications Medication Instructions Recorded Confirmed Type metformin 500 mg tablet 1,000 mg PO DAILY 07/05/19 03/13/22 History aspirin 81 mg tablet,delayed 81 mg PO DAILY #30 tabs 07/28/19 03/13/22 Rx release (Adult Low Dose Aspirin) lovastatin 10 mg tablet See Rx Instructions .Route 11/15/21 03/13/22 Rx .COMPLEX #90 tabs lisinopril 10 mg tablet 10 mg PO DAILY #90 tabs 02/12/22 03/13/22 Rx acetaminophen 500 mg tablet 500 mg PO DAILY PRN Back Pain 03/13/22 03/13/22 History (Tylenol Extra Strength) Sedation/Anesthesia: No previous sedation/anesthesia problems (including family history). [facility] Past Medical History Medical History Anemia Arthritis Diabetes History of breast cancer Right hip pain Social History Social History Smoking status: Never smoker Second hand tobacco smoke exposure: Yes Alcohol intake: current Drinks per week: 1 Alcohol use details: occassional use Substance use: never Substance use type: does not use Living arrangements: alone Gender identity (if verbalized by the patient): Male Spiritual care concerns: No Mod Sed Physical Exam Physical Exam Pre Procedural Exam: Normal: Neck, Throat, Airway, Lungs, Heart Size, Heart Rate, Heart Rhythm, Neuro Exam and Extremities and Variation: Appearance ( short-statured elderly lady no distress) Hours since solid foods: 12 Hours since liquid intake: 12 Mallampati Classification: class II Internal Medicine - PN: Obj Da Vital Signs Vital Signs: Vital Signs - 24 hr 03/13/22 09:36 Temperature 36.8 C Pulse Rate 87 Respiratory Rate 20 Blood Pressure 169/96 H Pulse Oximetry 100 Oxygen Delivery Room Air Labs CBC & Chem 7: 03/13/22 09:10 03/13/22 09:10 Labs: Laboratory Results - last 24 hr 03/13/22 03/13/22 09:10 09:10 WBC 4.2 L RBC 3.83 L Hgb 12.7 Hct 38.0 MCV 99.2 MCH 33.2 MCHC 33.4 RDW 13.0 Plt Count 167 MPV 9.3 Immature Gran % (Auto) 0.2 Neut % (Auto) 49.1 Lymph % (Auto) 35.6 Terrell % (Auto) 11.3 H Eos % (Auto) 2.6 Baso % (Auto) 1.2 Lymph # (Auto) 1.51 Terrell # (Auto) 0.5 Eos # (Auto) 0.1 Baso # (Auto) 0.1 Abs Immat Gran (auto) 0.01 Absolute Neuts (auto) 2.1 Absolute Nucleated RBC 0.0 Nucleated RBC % 0.0 Sodium 142 Potassium 4.2 Chloride 102 Carbon Dioxide 25 Anion Gap 15 BUN 18 H Creatinine 1.10 H Estim Creat Clear Calc 29 Estimated GFR 47 L Glucose 128 H Calcium 10.3 H ASA Classification/Sedation ASA Classification/Sedation ASA Class: III Emergent: No Risks: Risks, benefits and alternatives explained and patient/family accepted plan for sedation. Patient re-evaluated immediately prior to sedation.
--- NOTE | 2022-03-13 11:20 | WPDCARDPROC ---
Cardiac Cath Procedure Note Date of procedure:: 03/13/22 Performing physician:: Star Medley MD Indication:: intermittent complete heart block left bundle branch block Brief clinical history:: this is an 86-year-old woman reporting episodes of near-syncope and a recent episode of dacia syncope. She has been found to have intermittent complete heart block. Her principal cardiac rhythm is sinus with first-degree AV block with left bundle branch block. She is also known to have coronary artery disease with mild proximal left main stenosis which has been found to be non flow limiting. Procedure Procedure performed:: implantation of permanent leadless Medtronic Micra pacemaker Sedation/Medication given:: fentanyl 50 mg Versed 2 mg case start time 1032 a.m. case end time 11:12 a.m. sedation provided by Mary García RN, trained observer Access site:: left femoral vein, right femoral vein Estimated blood loss:: 20 CC Procedure note:: patient was brought to the cardiac catheterization lab in the postabsorptive state. Because of the left bundle branch block I elected to place a temporary transvenous pacemaker. The left femoral triangle was then prepped and 1% lidocaine was infused locally. The femoral vein was punctured and a 6 Stateless vascular sheath was placed. After this I used a 5 Stateless balloon tipped temporary pacing wire advanced in through the venous circulation into the heart, across the tricuspid valve and into the right ventricular apical position. Balloon was deflated the pacemaker was tested with appropriate pacing and sensing performance. Following this attention was turned to the right groin. 1% lidocaine was infiltrated local in the femoral triangle. The right femoral vein was then punctured and a an 8 Stateless vascular sheath was placed. The J tipped long guidewire was advanced under visualization up to the level of the right atrium. This was then exchanged for a superstiff wire. The 8 Stateless sheath was removed and the area was pre-dilated using the Denise and the dilator up to 22 Stateless. The dilator was then removed and the micro insertion sheath was then advanced over the Super Stiff wire to the level of the right atrium. The dilator was removed leaving the sheath in position. The sheath was then connected to heparinized saline flush. The micro delivery system was then prepared with flushing the entire catheter with heparinized saline. The device was withdrawn into the delivery catheter and then inserted into the delivery sheath. The device was advanced into the level of right atrium. The sheath was then withdrawn to the level of the IVC. The deflector was used to steer the micro device across the tricuspid valve into the right ventricle. In the MOZAMBICAN position we confirmed a septal position with saline contrast. Following that in the AP position the device was compressed into the mid septum and delivered uneventfully. Using cineangiography and tugging on the tethers the tines were seen to be fixed into position. The device was tested using the analyzer with very good pacing and sensing performance. The tethers were then cut and withdrawn leaving the micro the deployed into the septum. The delivery system was then withdrawn and removed. The device was tested again with very good pacing and sensing performance. Atrial tracking was then turned on and was functioning very well. The temporary pacing wire was then removed under fluoroscopic visualization. The right femoral vein puncture site was then secured using a [id number] stitch and manual compression when the 22 Stateless delivery system was withdrawn. The venous sheath on the left groin will be withdrawn and addressed with manual compression in standard fashion. The procedure was uncomplicated and well tolerated. Patient will be taken back to the holding area where bedrest will be ordered. Findings:: The patient received a Medtronic Micra
--- NOTE | 2022-03-13 12:47 | ECG_ITS ---
Measurements Intervals [place] Rate: 71 P: 13 ND: 308 QRS: -48 QRSD: 154 T: 89 QT: 409 QTc: 445 Interpretive Statements SINUS RHYTHM WITH FIRST DEGREE AV BLOCK LEFT BUNDLE BRANCH BLOCK COMPARED TO ECG 03/13/2022 09:22:14 NO DIFFERENCE Electronically Signed On 03-13-2022 14:11:40 CDT by Star Medley M.D.
[2022-03-13] MEDS: SODIUM CHLORIDE 0.9% IV 1,000 ML 125 ML IV CONT (13:21)
[2022-03-13] MEDS: HYDROcodone/acetaminophen (*CRX) 5-325 MG TABLET 1 TAB PO (13:27)
--- NOTE | 2022-03-13 15:01 | SUR.PHASEII ---
patient can transfer to imu room 214 per icu charge nurse
--- NOTE | 2022-03-13 15:40 | SUR.PHASEII ---
phase 2 ends, Extended recovery begins in [facility].
[2022-03-13] MEDS: ACETAMINOPHEN 325 MG TABLET 650 MG PO (21:13)
[2022-03-14] VITALS (8 sets, daily range): BP systolic 113–163; BP diastolic 60–82; PULSE 63–86; RESP 12–18; TEMP 36.2–36.8; O2SAT 98–100; BMI 22.6
--- NOTE | 2022-03-14 11:18 | PM.DS ---
DS: Admitting Diagnosis Discharge Date 03/14/2022 Admitting Diagnosis Intermittent complete heart block DS: Discharge Diagnosis Discharge Diagnosis (1) Status post placement of leadless cardiac pacemaker: Code(s): Z95.0 - Presence of cardiac pacemaker Status: Acute Plan Ambulate patient; if no further bleeding will discharge today. Follow-up in our office in 1 week for pacemaker check. Thereafter patient will follow-up with Dr. Arias. DS: Summary Hospital Course Reason for hospitalization: Intermittent complete heart block Elective placement of a permanent leadless right ventricular pacemaker Hospital Course: The patient has a history of CAD (recent cardiac catheterization showed a mild, non flow limiting left main stenosis), LBBB, hypertension diabetes. She is followed by Dr. Arias. She has had some problems with intermittent complete heart block by home monitoring, syncope and near-syncope. The longest documented pause has been 3.1 seconds. She was admitted for an elective pacemaker implant. The patient underwent placement of a permanent leadless Medtronic Micra pacemaker (Medtronic Micra? pacemaker? model Micra AV [id number] . serial number [id number]) on 03/13/[address] Medley successfully. The right femoral venous access site was closed with a [id number] stitch. There was some bleeding from the venous sheath site yesterday evening managed with local pressure. No further bleeding overnight. The area was soft with no ecchymosis or hematoma. Reviewed discharge instructions w/ pt and [id number]. Suture removal: After sterile prep, the suture was easily removed and another sterile dressing applied. No bleeding. Status at Discharge Functional status at discharge: uses cane/walker Overall status at discharge: patient is back to baseline Time Spent with Patient Time attestation: Total time spent providing and/or coordinating discharge services: 35 min Specific discharge activities: 35 min Exam Const: General: cooperative, healthy appearing and comfortable; No confusion Orientation/consciousness: oriented to person, patient oriented x3 and No confusion Other: Very bright and pleasant older lady in no distress HENMT: Mouth: Yes moist mucous membranes Eyes: EOM: EOMs intact bilaterally Resp: Effort & Inspection: normal respiratory effort Auscultation: clear to auscultation bilaterally Cardio: Rate: regular rate Rhythm: regular rhythm GI: Inspection: normal to inspection GI Palp: No abdominal tenderness Skin: General skin exam: normal color and no rashes or lesions noted Other: Right femoral area was soft, dressing was clean and dry, no ecchymosis or hematoma. Neuro: General: oriented to person, patient oriented x3 and No confusion Extrem: Right lower extremity: no edema Left lower extremity: no edema Psych: Appearance: grossly normal Mental Status: mental status grossly normal Discharge Plan Discharge Attending physician on discharge: Leigh Hinojosa Discharging Clinician: Leigh Hinojosa Anticipated Discharge Date/Time: 03/14/22 12:30 Patient Disposition: Home, Self-Care Activity: other - see discharge instructions Diet: diabetic Discharge Instructions: DISCHARGE INSTRUCTIONS - POST MICRA PACEMAKER Activity Restriction 1. Do not lift over 10 lbs. for 5 days post-procedure. 2. You may resume physical activity after 1-2 days but avoid any strenuous activity such as exercise for 1 week post-procedure. 3. Do not take a tub bath, Jacuzzi or swim for 7 days. 4. Discuss with your physician prior to discharge about when it is appropriate for you to return to work. Wound Care 1. Remove dressing 24 hours (on Wednesday) after your procedure prior to showering 2. Lather soap and water to puncture site and ri
[2022-03-14] MEDS: ACETAMINOPHEN 325 MG TABLET 650 MG PO (11:48)
== END 2022-03-14 13:20 | disposition home or self-care (01) | DRG 229 ==
LOC: ANHIMU 15:28
PROVIDERS: Admitting Provider Specialist; PCP Family Medicine; Visit Provider Specialist
PROC: 02HK3NZ Insertion of Intracardiac Pacemaker into Right Ventricle, Percutaneous Approach (ICD-10-PCS; CPT 33274; principal; 2022-03-13 10:30)
DX: I44.2 Atrioventricular block, complete (principal); I25.10 Atherosclerotic heart disease of native coronary artery without angina pectoris; I10 Essential (primary) hypertension; E11.9 Type 2 diabetes mellitus without complications; M19.90 Unspecified osteoarthritis, unspecified site; D64.9 Anemia, unspecified; Z85.3 Personal history of malignant neoplasm of breast
CPT/HCPCS: 33274; 36415; 71045; 80048; 85025; 93005; A9270; C1786; C1887; C1894; J0690; J1644; J2250; J3010; J7030; J7040